=== PATIENT | male | born 1945 | race African-American/Black ===

== ENCOUNTER 2023-09-07 12:40 | Outpatient (CLI) | payer OTHER ==
--- NOTE | 2023-09-07 13:58 | Sleep Patient Instructions ---
Sleep Center Visit Summary - Patient Visit Information Reason for Visit: Initial consult for evaluation of sleep disordered breathing and other sleep issues. - Patient Instructions Instructions Attached: Sleep Study Additional Instructions: You will be completing a sleep study, either an in-lab polysomnography (PSG) or home sleep study (HST). You will follow-up in the sleep care office after the sleep study is completed to hear the results and talk about therapy, if needed. You will be called by our office staff to schedule this appointment, but you may contact us with any questions. - Clinic Information Contact: [facility] [address] [place] [address] [email or web address] T: [phone]
--- NOTE | 2023-09-07 14:02 | SLEEP CARE CONSULTATION ---
Information from patient questionnaire entered by Angelina Clements. I have reviewed and concur with the information entered by Angelina Clements. This document represents the service I personally performed and the decisions made by me, Salome Kessler ARNP. History of Present Illness Service Date and Time: 09/07/2023 1240 Reason for Visit: New patient Accompanied by: Spouse (Colette) Chief Complaint: reports: Snoring, Excessive daytime sleepiness, Observed pauses in breathing, Frequent awakenings at night Date of Onset: OVER 40YRS Usual bedtime: 2-3AM Time it takes to fall asleep: NOT LONG Snores at night: Yes Observed to quit breathing while asleep: Yes Sleeps alone due to snoring: Yes Number of times waking at night: 2 Reasons for waking at night: reports: Choking, Gasping for air, Bathroom. denies: Snoring Toss, Turn, or Twitch while sleeping: No Recalls having dreams: Yes Usually gets out of bed at: DIFFERENT TIMES Feels refreshed in the morning: No Morning headache: No Sleepy or fatigued during the day: Yes Ever fallen asleep while driving: No Takes day naps: Yes (15 mins of so often) Dreams during day naps: Yes Prior sleep studies: No Additional HPI information: I had the pleasure of seeing LAUREANO ALEJANDRE today regarding the possibility of him having a sleep disorder. He is legally blind and is accompanied by his spouse today. He uses a walker for ambulation and stability. His current complaints are snoring, excessive daytime sleepiness, observed pauses in breathing and frequent night awakenings. His says he stays up all night and then goes to sleep between 3-4 AM. She says he snores and will stop breathing in his sleep. He will have "jerk" reactions and will wake up coughing. His snoring is very loud and he does make choking sounds in sleep. He feels refreshed when he wakes up overall. He gets up between 9-10 AM and sleeps only 4-6 hours usually. He will take naps but he only sleeps for about 15 or so minutes. His states he has memory issues. - Parasomnia Symptoms Ever been unable to move upon waking from sleep: No (times he cannot move from muscle stiffness) Walks in sleep: Yes Talks in sleep: No Ever acted out dreams in sleep: No Ever felt weak in the knees when startled or emotional: No Bothered by creepy, crawly, restless sensations in legs: No Problems with memory or concentration: Yes Subjective Initial [place] Sleepiness Scale score: 9 (08/06/23) Past Medical History Past Medical History: reports: Hypertension, Other (legally blind) Social History The patient's occupation is a RE. Patient is and lives in . Have you smoked in the past 12 months: No Alcohol use: Yes Alcohol amount and frequency: 3 CANS BEER ON WEEKENDS OR WINE Caffeine use: Yes Caffeine amount and frequency: 1 cup daily Family History Family history of sleep disordered breathing: No Allergies and Home Medications Known drug allergies: No Drug allergies reviewed: Yes Home medication list reviewed: Yes Allergy and home medication list: Allergies No Known Drug Allergies Allergy (Verified 09/05/23 11:24) Home Medications Medication Instructions Recorded Confirmed Last Taken Type Brimonidine Tartrate [Lumify] See Rx Instructions .ROUTE .COMPLEX 09/07/23 09/07/23 Unknown History Cholecalciferol (Vitamin D3) See Rx Instructions .ROUTE .COMPLEX 09/07/23 09/07/23 Unknown History [Vitamin D3] Dorzolamide/Timolol Ophth Soln See Rx Instructions .ROUTE .COMPLEX 09/07/23 09/07/23 Unknown History [Cosopt] Latanoprost 0.005% Ophth Drops See Rx Instructions .ROUTE .COMPLEX 09/07/23 09/07/23 Unknown History [Xalatan Ophth Drops] Mecobalamin [B12 Active] See Rx Instructions .ROUTE .COMPLEX 09/07/23 09/07/23 Unknown History acetaZOLAMIDE ER [Diamox ER] See Rx Instructions .ROUTE .COMPLEX 09/07/23 09/07/23 Unknown History hydroCHLOROthiazide [Hydrodiuril] See Rx Instructions .ROUTE .COMPLEX 09/07/23 09/07/23 Unknown History Amlodipine daily Review of Systems Cardiovascular: reports: high blood pressure, leg or foot swelling Gastrointestinal: denies: heartburn Neurological: reports: headaches, head trauma Psychiatric: denies: anxiety, depression Ear/Nose/Throat: denies: tonsillectomy Musculoskeletal: reports: joint pain, back pain, joint swelling, muscle pain or cramping Physical Exam Vital signs obtained and entered by: ANGELINA Arthur MA Blood Pressure: 164/97 (RIGHT ARM) Cuff size: regular Heart Rate: 64 O2 Saturation: 100 Height: 5 ft 9.5 in Weight: 177 lb 12.8 oz Body Mass Index: 25.9 BMI Classification: Overweight Neck circumference: 16.5 Mouth and throat: narrow oropharynx Soft palate: normal Hard palate: normal Uvula: normal Uvula visualization: 0% Mallampati Class IV Tongue: enlarged in size with teeth maloney on lateral edges (lump in center of tongue) Tonsils: 1+ Neck: normal w/o lymphadenopathy or thyromegaly Heart: regular rate and rhythm Lungs: clear bilaterally Impression and Plan 1. Suspected Obstructive Sleep Apnea-Hypopnea Syndrome, as suggested by a history of loud and irregular snoring, observed cessation of breath while asleep, gasping or choking in sleep, morning headache, frequent night awakenings and cognitive impairment. Narrow oropharynx and obesity are common predisposing factors for obstructive sleep apnea-hypopnea syndrome. I recommend proceeding to polysomnography to confirm the diagnosis and to assess severity. If the patient has significant sleep disordered breathing, a manual CPAP titration study will also be performed to find the optimal treatment pressure. I informed the patient of what the sleep studies involve and after some discussion, obtained agreement to proceed. The pathophysiology of obstructive sleep apnea- hypopnea syndrome was discussed with the patient and health risks of cardiovascular and cerebrovascular disease if not treated. Risks of drowsy driving discussed in detail and patient advised to avoid long distance driving and to tobacco sample puller at the first sign of drowsiness. Patient agreed to plan. * Schedule polysomnography +- manual CPAP titration study and return in 1-2 weeks after the study to discuss result and initiate therapy. * Avoid long distance driving or driving when feeling sleepy. * Avoid alcohol, sedative and muscle relaxant around bedtime. * Attempt to lose weight. * Review instructions provided by trained office staff on how to prepare for the sleep study. * Return for follow-up after sleep study completed. Follow up with Sleep Care in: other (sleep study followup) Plan: PSG Visit Type: In Office Time Spent with Patient (minutes): 33 Provider Statement: I spent 100% of the Face to Face Visit with the patient with greater than 50% spent counseling the patient and coordination of care.
[2023-09-07 14:11] VITALS: BP 164/97; O2SAT 100
== END 2023-09-07 12:41 | disposition home or self-care (01) ==
LOC: SC 12:40
PROVIDERS: ATTEND Nurse Practitioner Family
DX: R06.83 Snoring (principal); G47.10 Hypersomnia, unspecified; R06.81 Apnea, not elsewhere classified; G47.8 Other sleep disorders; H54.8 Legal blindness, as defined in USA; R51.9 Headache, unspecified; R41.89 Other symptoms and signs involving cognitive functions and awareness; E66.3 Overweight; Z68.25 Body mass index [BMI] 25.0-25.9, adult
CPT/HCPCS: 99203; 99212

== ENCOUNTER 2023-09-28 19:09 | Outpatient (CLI) | payer OTHER | END 2023-09-28 19:10 | disposition home or self-care (01) | LOC: SC 19:09 | PROVIDERS: ATTEND Nurse Practitioner Family | DX: G47.61 Periodic limb movement disorder (principal) | CPT/HCPCS: 95810 ==

== ENCOUNTER 2023-10-20 10:52 | Outpatient (CLI) | payer OTHER ==
--- NOTE | 2023-10-20 11:30 | Sleep Patient Instructions ---
Sleep Center Visit Summary - Patient Visit Information Reason for Visit: Sleep study follow-up - Patient Instructions Instructions Attached: Snoring Tips Prevent Additional Instructions: Your sleep study today was negative for significant sleep disordered breathing. You were found to have episodes of snoring. There are different ways to control snoring including weight loss, oral devices made by a dentist or surgical options through ENT specialist. You should not use oral devices that do not fit properly because they can affect your bite. You should also check insurance coverage of oral devices for snoring because they may not be cover well. You may obtain a referral to an ENT specialist through your primary provider. Follow-up as needed. - Clinic Information Contact: [facility] [address] [place] [address] [email or web address] T: [phone]
--- NOTE | 2023-10-20 11:33 | SLEEP CARE CONSULTATION ---
Information from patient questionnaire entered by Angelina Clements. I have reviewed and concur with the information entered by Angelina Clements. This document represents the service I personally performed and the decisions made by , Salome Kessler ARNP. History of Present Illness Service Date and Time: 10/20/2023 1052 Accompanied by: Spouse (Colette) Initial [place] Sleepiness Scale score: 9 Current [place] Sleepiness Scale score: 7 (10/20/23) Additional HPI information: LAUREANO ALEJANDRE returns with spouse for follow up and results of the recently performed polysomnography. The patient was informed of the following findings: No significant sleep disordered breathing with an average AHI of 0 and caron oxygen saturation of 95%. I explained the pathophysiology behind obstructive sleep apnea. Patient does not have sleep apnea and was advised how weight gain could increase the risk of developing sleep apnea in the future. Patient has light snoring. Snoring can also be treated with an oral appliance from a dentist. Advised to check insurance coverage. In addition, an ENT evaluation can be do to see if other treatment is indicated. Patient was cautioned about risks of drowsy driving until sleepiness symptoms resolve. Sleep Study - Results Type of Sleep Study: Polysomnography (COMPLETED 09/28/23) Prior sleep studies: No Polysomnography/Home Sleep Study results: IMPRESSION: The quality of the study is good. The patient had reduced sleep efficiency due to several prolonged awakenings during the night. The sleep architecture was slightly abnormal for lack of slow wave sleep (N3). Respiratory monitoring showed no significant sleep disordered breathing (AHI = 0.0) or hypoxia (caron oxygen saturation of 95%). The patient slept adequately in supine position (supine AHI = 0.0; non-supine = 0.00). Snore was light in intensity. There was moderate periodic leg movement of sleep not associated with sleep fragmentation. Cardiac rhythm was normal sinus rhythm without significant arrhythmia. No abnormal behavior (parasomnia) observed during the night. Allergies and Home Medications Known drug allergies: No Drug allergies reviewed: Yes Home medication list reviewed: Yes (no changes) Allergy and home medication list: Allergies No Known Drug Allergies Allergy (Verified 10/18/23 10:14) Review of Systems Review of systems same as previous: Yes (NO CHANGE) Physical Exam Vital signs obtained and entered by: ANGELINA Arthur MA Blood Pressure: 156/82 (LEFT ARM) Cuff size: regular Heart Rate: 57 O2 Saturation: 98 Height: 5 ft 9.5 in Weight: 178 lb 6.4 oz Body Mass Index: 25.9 BMI Classification: Overweight Impression and Plan 1. Periodic limb movement, moderate, that did not fragment patients sleep. Periodic limb movement of sleep (PLMS) is characterized by episodes of repetitive limb movements that occur during sleep and usually involve the lower limbs. The etiology is unknown. Sleep hygiene methods can also improve sleep as well as lifestyle changes such as regular exercise. Patient was advised that no treatment is needed at this time. If symptoms increase, then further evaluation is indicated. 2. Snoring but no significant sleep disordered breathing. Patient advised that often weight control is important to reduce snoring as well as apnea risk. An oral appliance can also be used for snoring. This would require a dental consultation. Patient cautioned not to use other online appliances as can cause bite issues. Patient is advised to check if insurance will cover. An ENT consult can also be helpful to determine if any other treatment is an option. * Follow up with primary provider as needed * Maintain a healthy weight * Avoid alcohol consumption near bedtime * The patient is cautioned about driving until sleepiness is completely resolved. * Return as needed for follow up. Counseling Topics: Weight control Follow up with Sleep Care in: as needed Follow up with: PCP Follow up recommended for: PLMS Visit Type: In Office Time Spent with Patient (minutes): 14 Provider Statement: I spent 100% of the Face to Face Visit with the patient with greater than 50% spent counseling the patient and coordination of care.
[2023-10-20 11:39] VITALS: BP 156/82; O2SAT 98
== END 2023-10-20 10:53 | disposition home or self-care (01) ==
LOC: SC 10:52
PROVIDERS: ATTEND Nurse Practitioner Family
DX: G47.61 Periodic limb movement disorder (principal); R06.83 Snoring; E66.3 Overweight; Z68.25 Body mass index [BMI] 25.0-25.9, adult
CPT/HCPCS: 99212